=== PATIENT | male | born 1965 | race Caucasian/White ===

== ENCOUNTER 2016-12-17 20:51 | Emergency (ER) | payer MEDICAID ==
[2016-12-17 21:13] VITALS: BP 108/74; PULSE 83; RESP 16; TEMP 98.6; O2SAT 93
== END 2016-12-17 21:43 | disposition left against medical advice (07) ==
DX: Z53.21 Procedure and treatment not carried out due to patient leaving prior to being seen by health care provider (principal)

== ENCOUNTER 2016-12-28 18:40 | Emergency (ER) | payer MEDICAID ==
[2016-12-28 22:44] VITALS: O2SAT 93
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
[2016-12-28] MEDS ORDERED: IBUPROFEN 600 MG TAB PO ONE (23:31)
--- NOTE | 2016-12-28 23:52 | DX ---
3 Views Left Shoulder. Clinical Indications: Pain following trauma. Findings: The humeral head is normally located in the glenoid fossa. No shoulder fracture is identi fied. The bone alignment is normal. Ribs are reported separately. 2 left rib fractures are noted. Impression: Negative for shoulder fracture. 2 left rib fractures are noted.
--- NOTE | 2016-12-28 23:54 | DX ---
PA Chest and Right Ribs (5 views) History: Pain post trauma. Findings: PA chest - No evidence of pneumothorax, pleural effusion or pulmonary contusion. The medias tinum is not widened. Right ribs, 4 views-there are minimally displaced left fourth and fifth rib fractures. Impression: Impression: Left fourth and fifth rib fractures with no associated pneumothorax.
[2016-12-29 00:29] VITALS: BP 118/64; PULSE 70; RESP 18; TEMP 98.1
== END 2016-12-29 00:28 | disposition home or self-care (01) ==
DX: S22.42XA Multiple fractures of ribs, left side, initial encounter for closed fracture (principal); S43.422A Sprain of left rotator cuff capsule, initial encounter; F17.200 Nicotine dependence, unspecified, uncomplicated; V18.4XXA Pedal cycle driver injured in noncollision transport accident in traffic accident, initial encounter; Y92.410 Unspecified street and highway as the place of occurrence of the external cause
CPT/HCPCS: A4565

== ENCOUNTER 2017-05-26 15:48 | Emergency (ER) | payer MEDICAID ==
[2017-05-26 15:56] VITALS: RESP 16
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
[2017-05-26 18:28] VITALS: BP 106/74; PULSE 59; TEMP 97.7; O2SAT 91
== END 2017-05-26 18:27 | disposition home or self-care (01) ==
DX: S43.401A Unspecified sprain of right shoulder joint, initial encounter (principal); S43.402A Unspecified sprain of left shoulder joint, initial encounter; S22.32XA Fracture of one rib, left side, initial encounter for closed fracture; F17.200 Nicotine dependence, unspecified, uncomplicated; W01.0XXA Fall on same level from slipping, tripping and stumbling without subsequent striking against object, initial encounter; Y99.8 Other external cause status; Y93.89 Activity, other specified

== ENCOUNTER 2017-07-26 11:36 | Emergency (ER) | payer MEDICAID ==
[2017-07-26] MEDS ORDERED: TDAP ADULT 0.5 ML INJ (BOOSTRIX) IM ONE (14:45)
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
[2017-07-26 15:09] VITALS: BP 122/82; PULSE 66; RESP 16; O2SAT 94
[2017-08-05 09:31] VITALS: TEMP 97.9
== END 2017-08-05 09:30 | disposition home or self-care (01) ==
PROC: 0HQGXZZ Repair Left Hand Skin, External Approach (ICD-10-PCS; principal; 2017-07-26)
DX: S61.215A Laceration without foreign body of left ring finger without damage to nail, initial encounter (principal); S61.213A Laceration without foreign body of left middle finger without damage to nail, initial encounter; S60.413A Abrasion of left middle finger, initial encounter; S60.222A Contusion of left hand, initial encounter; F17.200 Nicotine dependence, unspecified, uncomplicated; Z23 Encounter for immunization; W26.8XXA Contact with other sharp object(s), not elsewhere classified, initial encounter

== ENCOUNTER 2018-11-03 16:46 | Emergency (ER) | payer MEDICAID ==
[2018-11-03] MEDS ORDERED: IBUPROFEN 800 MG TAB PO ONE (17:11)
[2018-11-03] MEDS ORDERED: ACETAMINOPHEN 500 MG TAB PO ONE (17:11)
--- NOTE | 2018-11-03 17:15 | EDPHY ---
H & P Stated Complaint: Slipped on ice 3 days ago;R sided neck/shoulder pain since - Personal History Current Tetanus Diphtheria and Acellular Pertussis (TDAP): Yes - Medical/Surgical History Hx Asthma: No Hx Chronic Respiratory Disease: No Hx Diabetes: No Hx Cardiac Disease: No Hx Renal Disease: No Hx Cirrhosis: No Hx Alcoholism: No Hx HIV/AIDS: No Hx Splenectomy or Spleen Trauma: No Other PMH: r hip fx and plate - Social History Smoking Status: Current every day smoker Time Seen by Provider: 11/03/18 17:06 HPI/ROS: Chief complaint: Trip and fall with neck pain History of present illness: This is a 53-year-old male who presents to the emergency department after sustaining a trip and fall injuring his neck. He states this occurred 3 days ago. He slipped on the ice falling backwards striking back of his right shoulder neck. Since then he has had pain that has been progressively worsening. Worse with movement. He denies other associated signs or symptoms: He did not lose consciousness, is head feels fine. No report of trauma to or pain in his chest, abdomen, pelvis or extremities. No report of paresthesias, weakness or paralysis or bowel or bladder dysfunction. Review of systems: A 10 point review of systems was obtained and other than described above was negative (Javier Chavez) - Physical Exam Exam: General Appearance: Alert, nontoxic Eyes: PERRLA ENT: No hemotympanum, no lee sign, no raccoon eyes Respiratory: Lungs clear to auscultation bilaterally. Cardiac: Regular rate and rhythm. Neurological: Alert and oriented x4. Cranial nerves 2-12 grossly intact. Strength and sensation intact and symmetrical. Skin: No lesions consistent with acute trauma. Musculoskeletal: The head is nontender, there is no crepitus or bony deformity. There is pain to the upper cervical spine and paraspinal muscles bilaterally. Rest of the spine is nontender. He is moving all extremities well. He is ambulating on his own. (Javier Chavez) Constitutional: Initial Vital Signs Temperature (C) 36.4 C 11/03/18 16:47 Heart Rate 91 11/03/18 16:47 Respiratory Rate 16 11/03/18 16:47 Blood Pressure 110/81 H 11/03/18 16:47 O2 Sat (%) 95 11/03/18 16:47 O2 Delivery Mode Room Air Allergies/Adverse Reactions: penicillin V potassium [From Pen-Vee K] Allergy (Intermediate, Verified 16:47) swells up and gets a rash NOVACAIN Allergy (Mild, Uncoded 05/26/17 15:51) swelling at injection site with dental work Home Medications: Medication Instructions Recorded NK [No Known Home Meds] 07/26/17 Medical Decision Making - Diagnostics Imaging: Discussed imaging studies w/ outside plant engineer Radiologist - Diagnostics Imaging Results: Imaging Impressions Cervical Spine CT 11/03/18 17:10 Impression: 1. Negative for fracture. 2. Equivocal right upper lobe pulmonary nodule versus scar. Follow-up evaluation or comparison with prior cross-sectional imaging, if available, could be considered. 3. Degenerative changes noted, as detailed above. Results called and discussed with Javier Chavez PA-C on November 03, 2018 at 1821 hours. ED Course/Re-evaluation: Patient seen under the supervision of my secondary supervising physician Dr. Jeffry Gamble. Patient presents after mechanical trip and fall 3 days ago injuring his neck. He is nontoxic. He was placed in cervical collar. CT scan was obtained and negative. I did discuss that lung nodule seen on his CT scan and recommended follow-up with a primary care doctor. By history and physical exam I do not appreciate other evidence of trauma. Patient is discharged. Symptomatic care is discussed including pain management. He is referred to a primary care doctor for recheck. Strict return precautions were given. (Javier Chavez) Differential Diagnosis: Included but not limited to contusion, sprain or strain, bony fracture (Javier Chavez) - Data Points Medications Given: Discontinued Medications Acetaminophen (Tylenol) 1,000 mg PO EDNOW ONE Stop: 11/03/18 17:12 Last Admin: 11/03/18 17:15 Dose: 1,000 mg Ibuprofen (Motrin) 800 mg PO EDNOW ONE Stop: 11/03/18 17:12 Last Admin: 11/03/18 17:15 Dose: 800 mg Departure - Departure Disposition: Home, Routine, Self-Care Clinical Impression: Cervical strain Qualifiers: Encounter type: initial encounter Qualified Code(s): S16.1XXA - Strain of muscle, fascia and tendon at neck level, initial encounter Condition: Good Instructions: Cervical Strain (ED) Additional Instructions: Follow-up with a primary care doctor for recheck of your injury Also follow up with her primary care doctor for the nodule seen in your lungs on your CT scan of your neck Use ibuprofen 600 mg every 6-8 hours as needed for discomfort In addition You can take Tylenol 650 mg every 6 day hours as needed for discomfort with the ibuprofen If symptoms worsen or new symptoms develop return to the emergency department for recheck Referrals: NONE *PRIMARY CARE P,. [Primary Care Provider] - As per Instructions [facility],. [Clinic] - As per Instructions
[2018-11-03 18:42] VITALS: BP 113/77
== END 2018-11-03 18:42 | disposition home or self-care (01) ==
DX: S16.1XXA Strain of muscle, fascia and tendon at neck level, initial encounter (principal); W00.0XXA Fall on same level due to ice and snow, initial encounter; Y92.9 Unspecified place or not applicable; Y93.9 Activity, unspecified; Y99.9 Unspecified external cause status
CPT/HCPCS: L0120

== ENCOUNTER 2018-11-13 18:01 | Emergency (ER) | payer MEDICAID ==
--- NOTE | 2018-11-13 18:52 | EDPHY ---
H & P Time Seen by Provider: 11/13/18 18:37 HPI/ROS: CHIEF COMPLAINT: Left palmar hand laceration HISTORY OF PRESENT ILLNESS: 53-year-old homeless male was hiking today, slipped and fell onto a rock sustaining laceration to his left palm. No paresthesia. No sensory or motor deficit. No head injury. PRIMARY CARE PROVIDER: REVIEW OF SYSTEMS: A ten point review of systems was performed and is negative with the exception of the items mentioned in the HPI PHYSICAL EXAM (Prior to examination, patient consented to physical exam, hands were washed and my usual and customary physical exam procedures followed) 1) GENERAL: Well-developed, well-nourished, alert and oriented. Appears to be in no acute distress. 2) HEAD: Normocephalic 3) HEENT: Pupils equal, round, reactive to light bilaterally. 4) LUNGS: Breathing comfortably. 5) MUSCULOSKELETAL: Soft compartments. Normal coloration. No flexor or extensor deficits distally. 6) SKIN: Left palm overlying the 4th metacarpal 2 cm irregular laceration. 7) VASCULAR: pulses and cap refill present are brisk 8) NEUROLOGIC: Radial, ulnar, median nerve function intact with no deficits appreciated on exam DIFFERENTIAL DIAGNOSIS: in no particular order including but not limited to fracture, sprain, compartment syndrome Smoking Status: Current every day smoker Constitutional: Initial Vital Signs Temperature (C) 36.5 C 11/13/18 18:17 Heart Rate 70 11/13/18 18:17 Respiratory Rate 16 11/13/18 18:17 Blood Pressure 107/69 11/13/18 18:17 O2 Sat (%) 92 11/13/18 18:17 O2 Delivery Mode Room Air Allergies/Adverse Reactions: penicillin V potassium [From Pen-Vee K] Allergy (Intermediate, Verified 18:16) swells up and gets a rash NOVACAIN Allergy (Mild, Uncoded 05/26/17 15:51) swelling at injection site with dental work Home Medications: Medication Instructions Recorded Cephalexin [Keflex] 500 mg PO TID 7 Days #5 cap 11/13/18 Cyclobenzaprine 11/13/18 MDM/Departure - MDM Procedures: Procedure: Laceration repair. I explained the indications, risks and benefits for both laceration repair and anesthetic administration. Verbal consent was obtained from the patient. The laceration on the left palm was anesthetized using 0.5% bupivicaine with epinephrine. After anesthetic administered the patient was observed for a period of time and had no apparent adverse effects. The wound was cleaned, prepped, draped in normal sterile fashion and explored to its base. No foreign body seen, no foreign bodies palpated. There were no deep structures involved. No tendon injury was identified. The wound was repaired with 4 simple interrupted 5 O Prolene sutures. The wound repair was simple. The procedure was performed by myself. Patient has been informed that scarring will occur, although efforts have been made to minimize this. ED Course/Re-evaluation: Care of patient under supervision of primary supervising physician Dr Hartman . Recommended x-ray which patient declined. Informed the risks of declining this including, not limited to, fracture, radiopaque foreign body. I believe the patient to have decision-making capacity. Given my usual and customary wound precautions instructions. - Depart Disposition: Home, Routine, Self-Care Clinical Impression: Laceration of left hand Qualifiers: Encounter type: initial encounter Foreign body presence: without foreign body Qualified Code(s): S61.412A - Laceration without foreign body of left hand, initial encounter Condition: Good Instructions: Care For Your Stitches (ED), Laceration (ED) Additional Instructions: Return to the ER if you develop redness, swelling, discharge, warmth to the wound, red streaks going up your arm, or any other symptoms that concern you. Prescriptions: Cephalexin [Keflex] 500 mg PO TID 7 Days #5 cap Referrals: Return, to the ER in 10 days for suture removal [Other] - As per Instructions
[2018-11-13 20:13] VITALS: BP 95/58
== END 2018-11-13 20:18 | disposition home or self-care (01) ==
PROC: 0HQGXZZ Repair Left Hand Skin, External Approach (ICD-10-PCS; principal; 2018-11-13)
DX: S61.412A Laceration without foreign body of left hand, initial encounter (principal); W22.8XXA Striking against or struck by other objects, initial encounter; Y93.01 Activity, walking, marching and hiking; Z59.0 Homelessness

== ENCOUNTER 2019-01-03 08:41 | Emergency (ER) | payer MEDICAID ==
[2019-01-03 08:46] VITALS: BP 97/83
--- NOTE | 2019-01-03 09:04 | EDPHY ---
H & P Stated Complaint: ADDY leg pain Time Seen by Provider: 01/03/19 08:58 HPI/ROS: HPI: This is a 53-year-old male who presents with Chief Complaint: Bilateral leg pain Location: Bilateral leg Quality: Pain Duration: Unknown Signs and Symptoms: No bleeding, no radiation, no numbness, no weakness, no tingling, no incontinence, no decreased range of motion, no swelling, no fever Timing: Chronic Severity: [id number] Context: Patient is homeless, history traumatic brain injury, presents today irritable and upset that no one listen to him and clear him to be disabled. He reports that in the past he has been on gabapentin and Flexeril and this does not control his lower back pain, right hip pain. He reports that he has bilateral leg pain for the last 5-10 years. [place]. He denies alcohol, drug, tobacco use. He reports that [facility] but does not feel like the listen to him or give him the medications that he needs. In the past he has used Darvocet or Demerol with good pain control but he realizes that Darvocet is no longer on the market. He reports that no one will give him Demerol for pain. Patient at times will interrupt the conversation and reports that he does not understand as he has a brain injury. He reports that he just needs help getting food stamps. Patient is a very difficult historian. Denies any change in bowel or bladder habits, decreased range of motion, radiation, weakness. Modifying Factors: None Comment: ROS: A comprehensive 10 system review of systems is otherwise negative aside from elements mentioned in the history of present illness. MEDICAL/SURGICAL/SOCIAL HISTORY: Medical history: Right hip fracture, lumbar degenerative disc disease, traumatic brain injury Surgical history: Right hip ORIF Social history: Homeless. CONSTITUTIONAL: Irritable, untidy, middle-aged white male, awake and alert, no obvious distress HEENT: Atraumatic and normocephalic. NECK: supple, no midline tenderness, flexion 45 degrees, extension 45 degrees, right and left lateral flexion 45 degrees. No meningismus. Cardiovascular: Normal S1/S2, regular rate, regular rhythm, without murmur rub or gallop. PULMONARY/CHEST: Symmetrical and nontender. no crepitus. Clear to auscultation bilaterally. Good air movement. No accessory muscle usage. ABDOMEN: Soft, nondistended, nontender. PELVIC: no pain with rocking; bilateral hips flexion 125 degrees, extension 30 degrees, with no pain internal rotation and no pain external rotation. BACK: No midline tenderness, no paraspinous spasm, deep tendon reflexes 2/2, no pain with straight leg raise, No foot drop. Achilles reflexes are equal bilaterally. Able to walk on heels and toes without difficulty. EXTREMITIES: 2/2 pulses, strength 5/5, DIP/PIP/MCP flexion/extension intact with good light touch sensation. no deformities, no clubbing, no cyanosis or edema. NEUROLOGICAL: no focal neuro deficits. GCS 15. Light touch sensation intact. SKIN: Warm and dry, no erythema. no rash. Good capillary refill. Source: Patient Exam Limitations: No limitations - Personal History Current Tetanus/Diphtheria Vaccine: Yes Current Tetanus Diphtheria and Acellular Pertussis (TDAP): Yes - Medical/Surgical History Hx Asthma: No Hx Chronic Respiratory Disease: No Hx Diabetes: No Hx Cardiac Disease: No Hx Renal Disease: No Hx Cirrhosis: No Hx Alcoholism: No Hx HIV/AIDS: No Hx Splenectomy or Spleen Trauma: No Other PMH: r hip fx and plate - Social History Smoking Status: Current every day smoker Constitutional: Initial Vital Signs Temperature (C) 37 C 01/03/19 08:45 Heart Rate 91 01/03/19 08:45 Respiratory Rate 16 01/03/19 08:45 Blood Pressure 97/83 H 01/03/19 08:45 O2 Sat (%) 93 01/03/19 08:45 O2 Delivery Mode Room Air Allergies/Adverse Reactions: penicillin V potassium [From Pen-Vee K] Allergy (Intermediate, Verified 08:44) swells up and gets a rash NOVACAIN Allergy (Mild, Uncoded 01/03/19 08:44) swelling at injection site with dental work Medical Decision Making ED Course/Re-evaluation: Vital signs reviewed and stable upon arrival. Patient has no neurological deficits to warrant emergent MRI or imaging in the emergency room. Patient in fact just wants pain medications and paperwork to be completed to receive disability and food stamps. Patient is already received information at the [facility] and has gone but does not approve of their treatment plan. Case management consult but patient is upset and does not want to talk to anyone further. Patient walked out of the ER without any difficulty. No signs of neurovascular compromise/tenting of skin/compartment syndrome/ extremities and joints examined above and below area of concern and are neurovascularly intact/cauda equina syndrome. This patient was seen under the supervision of my primary supervising physician. I evaluated care for this patient with attending. Discussed this patient with Dr. Abad. Differential Diagnosis: Back pain including but not limited to muscular pain, herniated disc, spine fracture, intra-abdominal causes and urinary tract infection. Departure - Departure Disposition: Home, Routine, Self-Care Clinical Impression: Chronic pain Qualifiers: Chronic pain type: chronic pain syndrome Qualified Code(s): G89.4 - Chronic pain syndrome Condition: Good Instructions: Chronic Pain (ED) Additional Instructions: Return to the ER immediately if you have new or worsening back pain, fevers/ chills, flu like symptoms, incontinence or inability to urinate or defecate, weakness, paralysis, or any other symptom that concerns you Referrals: [facility],. [Clinic] - As per Instructions
== END 2019-01-03 09:27 | disposition home or self-care (01) ==
DX: M79.606 Pain in leg, unspecified (principal); G89.4 Chronic pain syndrome; Z59.0 Homelessness; Z79.899 Other long term (current) drug therapy